=== PATIENT | male | born 1950 | race Caucasian/White ===

== ENCOUNTER → 2019-11-19 | Outpatient (CLI) | payer MEDICARE, OTHER ==
--- NOTE | 2019-11-19 12:12 | CT ---
EXAMINATION TYPE: CT brain wo con DATE OF EXAM: 11/19/2019 COMPARISON: None HISTORY: Headache with dizziness. CT DLP: 1090.4 mGycm Automated exposure control for dose reduction was used. TECHNIQUE: CT scan of the head is performed without contrast. FINDINGS: There is no acute intracranial hemorrhage or midline shift identified. There is diffuse v entricular and sulcal prominence consistent with diffuse age-related cerebral atrophy. The globes ar e intact. There is moderate to severe mucosal thickening of the right maxillary sinus, circumferent ial moderate mucosal thickening of the left maxillary sinus and severe mucosal thickening in the ethm oid sinuses. Inspissated secretions are seen in the sphenoid sinus. Very scant mucosal thickening in the inferior aspect of the frontal sinuses. Mastoid air cells are well aerated. Cerumen is noted in b oth external auditory canals, right greater than left. There is mild leftward nasal septal deviation. IMPRESSION: 1. No acute intracranial hemorrhage or midline shift. 2. Moderate to severe pansinusitis.
== END | disposition home or self-care (01) ==
LOC: RADCTMAIN 10:00
PROVIDERS: ATTEND Family Medicine
DX: S09.90XA Unspecified injury of head, initial encounter (principal); R42 Dizziness and giddiness
CPT/HCPCS: 70450

== ENCOUNTER → 2019-12-04 | Outpatient (CLI) | payer MEDICARE, OTHER ==
--- NOTE | 2019-12-05 08:00 | ECHOF ---
Referral Reason:[id number] dizziness, R94.31 abnormal EKG MEASUREMENTS -------- HEIGHT: 180.3 cm WEIGHT: 102.5 kg BP: RVIDd: 3.1 cm (< 3.3) IVSd: 1.0 cm (0.6 - 1.1) LVIDd: 5.1 cm (3.9 - 5.3) LVPWd: 1.2 cm (0.6 - 1.1) IVSs: 1.5 cm LVIDs: 2.9 cm LVPWs: 1.5 cm LAESV Index (A-L): 26.45 ml/m Ao Diam: 3.3 cm (2.0 - 3.7) AV Cusp: 2.4 cm (1.5 - 2.6) LA Diam: 3.7 cm (2.7 - 3.8) MV EXCURSION: 18.395 mm (> 18.000) MV EF SLOPE: 137 mm/s (70 - 150) EPSS: 0.6 cm MV E Luc: 0.84 m/s MV DecT: 189 ms MV A Luc: 0.72 m/s MV E/A Ratio: 1.17 AR PHT: 749 ms RAP: 5.00 mmHg RVSP: 10.49 mmHg FINDINGS -------- Sinus rhythm. This was a technically good study. The left ventricular size is normal. Left ventricular wall thickness is normal. Overall left vent ricular systolic function is normal with, an EF between 55 - 60 %. The diastolic filling pattern is normal for the age of the patient 10.47. The right ventricle is normal in size. The left atrial size is normal. Normal LA size by volume 22+/-6 ml/m2. The right atrial size is normal. Interatrial and interventricular septum intact. The aortic valve is trileaflet and appears structurally normal. Trace amount of aortic regurgitatio n. The mitral valve is normal. There is trace mitral regurgitation. The tricuspid valve appears structurally normal. Trace tricuspid regurgitation present. Right coby tricular systolic pressure is normal at < 35 mmHg. Trace/mild (physiologic) pulmonic regurgitation. The aortic root size is normal. Normal inferior vena cava with normal inspiratory collapse consistent with estimated right atrial pre ssure of 5 mmHg. There is no pericardial effusion. CONCLUSIONS -------- 1. Sinus rhythm. 2. This was a technically good study. 3. The left ventricular size is normal. 4. Left ventricular wall thickness is normal. 5. Overall left ventricular systolic function is normal with, an EF between 55 - 60 %. 6. The diastolic filling pattern is normal for the age of the patient 10.47 7. The right ventricle is normal in size. 8. The left atrial size is normal. 9. Normal LA size by volume 22+/-6 ml/m2. 10. The right atrial size is normal. 11. Interatrial and interventricular septum intact. 12. The aortic valve is trileaflet and appears structurally normal. 13. Trace amount of aortic regurgitation. 14. The mitral valve is normal. 15. There is trace mitral regurgitation. 16. The tricuspid valve appears structurally normal. 17. Trace tricuspid regurgitation present. 18. Right ventricular systolic pressure is normal at < 35 mmHg. 19. Trace/mild (physiologic) pulmonic regurgitation. 20. The aortic root size is normal. 21. Normal inferior vena cava with normal inspiratory collapse consistent with estimated right atrial pressure of 5 mmHg. 22. There is no pericardial effusion. SIDE DOOR MAN: Jeannette Moreno RDCS
== END | disposition home or self-care (01) ==
LOC: RADECHMAIN 10:29
PROVIDERS: ATTEND Family Medicine
DX: I08.3 Combined rheumatic disorders of mitral, aortic and tricuspid valves (principal); R42 Dizziness and giddiness
CPT/HCPCS: 93306

== ENCOUNTER → 2020-02-28 | Outpatient (CLI) | payer MEDICARE, OTHER ==
--- NOTE | 2020-02-28 08:18 | US ---
EXAMINATION TYPE: US kidneys/renal and bladder DATE OF EXAM: 02/28/2020 COMPARISON: NONE CLINICAL HISTORY: R31.9 HEMATURIA. Hematuria EXAM MEASUREMENTS: Right Kidney: 10.8 x 5.6 x 5.1cm Left Kidney: 11.6 x 6.1 x 5.3cm Right Kidney: cystic area anterior mid = 0.8cm Left Kidney: no evidence of hydronephrosis Bladder: appears wnl Bilateral Jets seen: yes There is no evidence for hydronephrosis at this point in time. No nephrolithiasis is seen. No jie s are identified. Cortical medullary differentiation is maintained. The urinary bladder is anechoic. Bilateral ureteral jets are seen. IMPRESSION: Normal renal sizes, no evident mass. Small probable cortical cyst midpole right kidney.
== END | disposition home or self-care (01) ==
LOC: RADUSWWP 07:41
PROVIDERS: ATTEND Urology
DX: R31.9 Hematuria, unspecified (principal)
CPT/HCPCS: 76770

== ENCOUNTER 2020-03-20 06:20 | Day surgery (SDC) | payer MEDICARE, OTHER ==
[2020-03-20] MEDS ORDERED: Pre Op ABX Message 1 EACH MISC MISCELLANE ONE (09:00)
[2020-03-20] MEDS ORDERED: ONDANSETRON 4 MG/2 ML VIAL ONE (11:39)
[2020-03-20] MEDS ORDERED: DEXAMETHASONE SOD PHOSPHATE 4 MG/ML 1 ML VIAL IVP ONE (11:40)
[2020-03-20] MEDS ORDERED: LACTATED RINGERS 1,000 ML IV ONE (11:40)
[2020-03-20] MEDS ORDERED: ONDANSETRON 4 MG/2 ML VIAL IVP ONE (11:40)
[2020-03-20 11:42] VITALS: TEMP 97.1
[2020-03-20] MEDS ORDERED: SODIUM BICARB 8.4% 10 ML VIAL (1 MEQ/ML) ONE (12:24)
[2020-03-20 13:46] VITALS: RESP 16
[2020-03-20 14:42] VITALS: BP 111/57; PULSE 73
--- NOTE | 2020-03-29 15:41 | P.OP ---
Date of Procedure: 03/20/20 Preoperative Diagnosis: 1. Right small finger puncture wound with retained foreign body. Postoperative Diagnosis: 1. Right small finger puncture wound with retained foreign body. Procedure(s) Performed: 1. Exploration, irrigation and debridement of right small finger wound with removal of foreign body. Anesthesia: local Surgeon: Nj Metzger Estimated Blood Loss (ml): 1 Condition: stable Disposition: same day Indications for Procedure: The patient is a pleasant 69-year-old male who presented to the office for evaluation of a puncture wound to his right small finger. He was ripping up some plywood alexander when the injury occurred and he thought he may have gotten a splinter. He was evaluated at an urgent care but they were unable to identify any foreign body. Ultrasound examination the office revealed a hyperechoic structure with shadowing, consistent with a retained foreign body. Treatment options (and associated risks & benefits) were discussed in the office; the patient elected surgical exploration and removal. In preop, additional questions were addressed and the patient wished to proceed with surgery. Consent forms were signed. The operative site was confirmed and marked. Operative Findings: Removed foreign body: Wood fragment, measuring 1 mm x 2 mm x 18 mm Description of Procedure: After consent was obtained, lidocaine with epinephrine was injected around the planned incision/surgical site in preop, using aseptic technique. After an appropriate interval of time, the patient was brought to the OR and positioned supine with the operative limb on a hand table. The right upper extremity was then prepped and draped in standard, sterile fashion. A time-out was performed, confirming patient identifiers, the operative side, the site and the procedure to be performed: all team members expressed agreement. Loupe magnification was utilized throughout the case for optimum visualization. The puncture wound at the palmar digital crease was incorporated into a partial Mikey incision on the volar aspect of the small finger proximal phalanx. The skin was sharply incised. Spreading dissection proceeded down to the flexor sheath.There was a moderate amount of edema but no gross purulence. The wound was bluntly probed and explored: The foreign body was identified along the ulnar aspect of the flexor sheath, consistent with the patients description of the injury trajectory ([id number] and [id number]). The wood splinter was carefully dissected free and removed atraumatically. There was no obvious injury to the flexor tendons or neurovascular bundle. A small amount of thickened, fibrinous exudative/granular tissue was identified along the flexor sheath between the A1 and A2 pulleys and was carefully removed with a rongeur. The surrounding soft tissues were gently debrided with a cu rette. The wound was visually explored: No further foreign matter was identified. The wound was copiously irrigated with normal saline using a syringe and angiocatheter. Good hemostasis was maintained throughout the case without the need for a tourniquet. The incision was loosely closed with interrupted 5-0 nylon sutures. A soft, sterile dressing was applied. All sponge, needle and instrument counts were correct at the end of the case. No complications were identified. The patient tolerated the procedure well and was transferred to recovery in stable condition.
== END 2020-03-20 14:18 | disposition home or self-care (01) ==
LOC: OR 06:20
PROVIDERS: ATTEND Orthopaedic Surgery
DX: S61.246A Puncture wound with foreign body of right little finger without damage to nail, initial encounter (principal); Z97.3 Presence of spectacles and contact lenses; Z87.11 Personal history of peptic ulcer disease; Z87.891 Personal history of nicotine dependence; W26.9XXA Contact with unspecified sharp object(s), initial encounter
CPT/HCPCS: 20103; J1100; J2405

== ENCOUNTER → 2020-09-03 | Outpatient (CLI) | payer MEDICARE, OTHER ==
[2020-09-03 08:30] LABS: African American GFR (CKD) >90 (>60 ml/min/1.73 sqM); Blood Urea Nitrogen 16 mg/dL (9-20); Non-African American GFR(CKD) 83 (>60 ml/min/1.73 sqM)
--- NOTE | 2020-09-03 10:28 | CT ---
EXAMINATION TYPE: CT urogram wo/w con DATE OF EXAM: 09/03/2020 COMPARISON: Renal ultrasound 02/28/2020 HISTORY: 70-year-old male R31.0, hematuria TECHNIQUE: Contiguous axial scanning of the abdomen and pelvis performed without and with IV Contrast , patient injected with 100 mL of Isovue 300. Delayed images through the kidneys and bladder were obt ained. Coronal/sagittal reconstructions performed. 3-D reconstructions generated on a dedicated [employer] workstation. CT DLP: 3529 mGycm Automated exposure control for dose reduction was used. FINDINGS: Heart normal size without pericardial effusion. There is pleural thickening at the posterior right ba se probably chronic given calcifications on both sides and some prominent bands of scarring or atelec tasis. Three-month follow-up CT chest can reassess for any changes. No focal liver lesion or biliary ductal dilatation. Portal venous system is patent. Gallbladder, adrenal glands, spleen, and pancreas appear within normal limits. Tiny subcentimeter cortical hypodensities within the right kidney, too small for accurate CT characte rization, likely tiny cysts. No suspicious renal mass is identified. No nephrolithiasis. Symmetric uptake and excretion of contrast from the kidneys. No suspicious filling defects within the renal collecting systems or along the course of either urete r. No dilated small bowel, free fluid, or free air. No mesenteric or retroperitoneal lymphadenopathy. Normal appendix. Mild stool burden. Mild diverticular change along the mid sigmoid colon. No pericolo brody inflammatory change. Mild circumferential bladder wall thickening. Pelvic phleboliths. Prostate gland measures 4.3 cm wide . No abnormal fluid collection in the pelvis or pelvic lymphadenopathy. Bones: Mild degenerative change of the hips and facet arthropathy mid to lower lumbar spine. Moderate degenerative disc disease mid and lower lumbar spine. IMPRESSION: 1. Tiny subcentimeter cortical hypodensities within the right kidney, likely tiny cortical cysts. No suspicious renal mass, collecting system lesion, nephrolithiasis, or abnormality along the course of either ureters. 2. Mild circumferential bladder wall thickening could represent chronic bladder wall hypertrophy or c ystitis. 3. Bibasilar pleural calcifications overlying the hemidiaphragms and additional prominent pleural par enchymal thickening at the right base. Query history of prior asbestos exposure. Three-month follow-u p CT chest recommended to reassess.
== END ==
LOC: RADCTMAIN 07:40
PROVIDERS: ATTEND Urology
DX: N28.89 Other specified disorders of kidney and ureter (principal); N32.89 Other specified disorders of bladder; J92.0 Pleural plaque with presence of asbestos
CPT/HCPCS: 82565; 84520; 74178; 36415; 74400; Q9967

== ENCOUNTER → 2021-03-02 | Outpatient (CLI) | payer MEDICARE, OTHER ==
--- NOTE | 2021-03-03 09:13 | CT ---
EXAMINATION TYPE: CT chest wo con DATE OF EXAM: 03/02/2021 COMPARISON: CT urogram 09/03/2020 HISTORY: abn CT urogram CT DLP: 484.9 mGycm. Automated Exposure Control for Dose Reduction was Utilized. TECHNIQUE: CT scan of the thorax is performed without IV contrast. FINDINGS: Lack of contrast could compromise sensitivity. Calcified pleural plaques are present bilaterally. Pleural thickening at the right lung base shows a similar appearance to prior exam, there is associated scarring. Volume loss is present in the right h emithorax. No endobronchial lesion. LUNGS: The lungs are grossly clear, there is no concerning parenchymal mass or nodule identified. T here is no pleural effusion or pneumothorax seen. The tracheobronchial tree is patent. MEDIASTINUM: Lack of IV contrast is noted to limit evaluation for mediastinal and especially hilar ad enopathy. There are no definitive greater than 1 cm hilar or mediastinal lymph nodes. No cardiomega ly or pericardial effusion is seen. There are coronary artery calcifications. Prominence of the pulmo nary artery could be indicative of pulmonary artery hypertension. OTHER: No additional significant abnormality is seen. IMPRESSION: Correlate for specimens related disease. Coronary artery disease and possible pulmonary a rtery hypertension. Stable pleural thickening at the lung bases. Noncontrast exam.
== END | disposition home or self-care (01) ==
LOC: RADCTMAIN 14:22
PROVIDERS: ATTEND Family Medicine
DX: J92.9 Pleural plaque without asbestos (principal); I25.10 Atherosclerotic heart disease of native coronary artery without angina pectoris
CPT/HCPCS: 71250

== ENCOUNTER → 2023-04-12 | Outpatient (CLI) | payer MEDICARE, OTHER ==
--- NOTE | 2023-04-12 11:16 | CA ---
Exercise Nuclear Stress Test Report Name: Sherman Lamb Exam Date: 04/12/2023 10:30 Exam Location: [facility] Stress Ht (in): 71 Wt (lb): 223 BSA: 2.21 Ordering Phys: Christianne Alves MD Referring Phys: Christianne Alves MD Technologist: ESTRELLITA,, Age: 73 Gender: M : 1950 Procedure CPT: Indications: I25.10 ATHSCL HEART DISEASE OF [place] CORONARY ART ICD-10 Codes: Patient History: Chest pain Medications: Meds past 24 hrs: Pretest Chest Pain: STRESS TEST Star Protocol Exercise Duration (min:sec): 06:[address] Depressions (mm): Angina Score: Erazo Score: Resting HR (bpm): 72 Peak HR (bpm): 130 Resting BP (mmHg): 139 / 78 Peak BP (mmHg): 187 / 83 MPHR: 145 Target HR: 123 % MPHR: 90 METS: 7.1 Total Dose: Peak Dose: Atropine: Double Product: 09180 BP Response: Stress Termination: Reached target heart rate Stress Symptoms: No chest pain or symptoms Stress Summary: ECG ANALYSIS Resting ECG: Normal sinus rhythm, normal ECG, heart rate 71 beats minute Stress ECG: No significant ST-T wave changes that are diagnostic for ischemia by ST segment analysis. There are occasional monomorphic PVCs during peak exercise and in recovery. CONCLUSIONS Fair excess tolerance for patient's age Nonischemic ECG response to exercise Normal hemodynamic and clinical response to exercise Overall normal treadmill stress test Please refer to the nuclear portion of this stress test for complete interpretation of this study Dr Pramod Rodríguez (Electronically Signed) Final Date: 12 April 2023 11:15
--- NOTE | 2023-04-12 11:59 | NM ---
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 The patient exercised using a CAMILO protocol and 1 minute prior to peak e xercise was injected with 25.5 mCi Tc 99m Sestamibi - Stress images obtained 30 minutes post injectio n. FINDINGS: Targeted heart rate was achieved during performance of the study. Review of stress and rest SPECT marine ges demonstrates decreased perfusion involving the stress images involving the inferoseptal wall as w ell as the apical inferior wall. Stress-induced ischemia is not excluded. Gated analysis shows normal wall motion with an estimated left ventricular ejection fraction of 51 %. IMPRESSION: Decreased perfusion involving the stress images involving the inferoseptal wall as well as the apical inferior wall. Stress-induced ischemia is not excluded.
== END | disposition home or self-care (01) ==
LOC: RADNMMAIN 08:24
PROVIDERS: ATTEND Internal Medicine
DX: I25.10 Atherosclerotic heart disease of native coronary artery without angina pectoris (principal)
CPT/HCPCS: 93017; 78452; A9500

== ENCOUNTER → 2023-04-27 | Outpatient (CLI) | payer MEDICARE, OTHER ==
[2023-04-27 16:50] LABS: HCT 45.7 % (39.6-50.0); MCH 30.1 pg (27.0-32.0); MCHC 32.8 g/dL (32.0-37.0); MCV 91.6 FL (80.0-97.0); Mean Platelet Volume 11.8 FL (9.5-12.2); NRBC Per 100 WBC 0 X 10*3/uL (0.00-0.01); Platelet Count 188 X 10*3/uL (140-440); RBC 4.99 X 10*6/uL (4.40-5.60); RDW 13.1 % (11.5-14.5); WBC 5.54 X 10*3/uL (4.50-10.00)
[2023-04-27 21:11] LABS: Blood Urea Nitrogen 13.7 mg/dL (9.0-27.0); Carbon Dioxide 24.7 mmol/L (21.6-31.8); Chloride 106 mmol/L (96-109); Potassium 5.4 mmol/L (3.5-5.5); Sodium 145 mmol/L (135-145)
== END | disposition home or self-care (01) ==
LOC: LABPAT 11:05
PROVIDERS: ATTEND Internal Medicine Interventional Cardiology
DX: Z01.812 Encounter for preprocedural laboratory examination (principal)
CPT/HCPCS: 80051; 82565; 84520; 85027

== ENCOUNTER 2023-05-08 06:10 | Day surgery (SDC) | payer MEDICARE, OTHER ==
[~2023-05-08 06:10] MED LIST: ALPRAZolam 0.25 MG TAB PO PRN; ALPRAZolam 0.5 MG TAB PO PRN; HEPARIN SODIUM,PORCINE (1 ML) 2,500 UNIT in SODIUM CHLORIDE 0.9% 250 ML IRRIGATION PRN; HEPARIN SODIUM,PORCINE 10,000 UNIT in SODIUM CHLORIDE 0.9% 1,000 ML IRRIGATION PRN; NITROGLYCERIN SL TABS 0.4 MG TAB SUBLINGUAL PRN; SODIUM CHLORIDE 0.9% 1,000 ML in EMPTY BAG 1 BAG IV SCH
[2023-05-08] MEDS ORDERED: SODIUM CHLORIDE 0.9% 1,000 ML IV ONE (06:36)
[2023-05-08 06:57] VITALS: RESP 16; TEMP 97.4
[2023-05-08] MEDS ORDERED: LIDOCAINE 1% INJ 10MG/ML (20 ML MDV) ONE (07:17)
[2023-05-08] MEDS ORDERED: VERAPAMIL 2.5 MG/ML 2 ML AMP ONE (07:17)
[2023-05-08] MEDS ORDERED: HEPARIN SODIUM 1,000 UN/ML (10ML VL) ONE (07:43)
[2023-05-08] MEDS ORDERED: MIDAZOLAM 2 MG/2 ML VIAL IVP ONE (07:53)
[2023-05-08] MEDS ORDERED: LIDOCAINE 1% INJ 10MG/ML (20 ML MDV) SQ ONE (07:54)
[2023-05-08] MEDS ORDERED: VERAPAMIL SYRINGE (5 MG/10 ML) INTRAARTER ONE (07:56)
[2023-05-08] MEDS ORDERED: HEPARIN SODIUM 1,000 UN/ML (10ML VL) IV ONE (07:58)
[2023-05-08] MEDS ORDERED: IOPAMIDOL-370 100ML BTL INJ ONE (08:08)
[2023-05-08] MEDS ORDERED: RX INFO: IV CONTRAST WAS GIVEN 1 EACH MISC MISCELLANE PRN (08:18)
--- NOTE | 2023-05-08 08:22 | P.PCN ---
Date of Procedure: 05/08/23 Operative Findings: CARDIAC CATHETERIZATION PERFORMING PHYSICIAN: Venancio Hutson MD, RPVI PROCEDURE PERFORMED: 1. Selective right and left coronary angiogram 2. Left heart catheterization 3. Ultrasound-guided access of the right radial artery INDICATION: This is a 73-year-old gentleman who was experiencing symptoms of chest discomfort and underwent myocardial perfusion imaging stress test showed anterior ischemia. In the light of that heart catheterization was advised COMPLICATION: None APPROACH: Right radial artery LEVEL OF SEDATION: Moderate with a sedation length of 17 minutes PROCEDURE DESCRIPTION: After obtaining an informed consent, the patient was brought to cardiac clinical laboratory scientist. Local anesthesia was performed using lidocaine subcutaneously. The right radial artery was cannulated using Seldinger technique, the guidewire passed easily, following that we advanced a 5-Palestinian sheath dilator assembly, the wire and dilator were removed and sheath was flushed. Following that, 2 mg of verapamil along with 2000 unit heparin were given. Selective right and left coronary angiogram using a 6-Palestinian JR4 and JL 3.5 catheters. Following that we did left heart catheterization using 6-Palestinian pigtail catheter. The procedure was completed there was no complication. SELECTIVE CORONARY ANGIOGRAM: The right coronary artery: Large-caliber vessel and a dominant vessel and appeared to be angiographically normal. Distally bifurcates into PDA and PLV branches and both appeared to be angiographically normal Left main: Is angiographically normal. Bifurcates into an LCx and LAD The left circumflex: Large caliber vessel and nondominant vessel. Its angiographically normal. It gives rises into the first and second and third obtuse marginal branch and APPEARS to be angiographically normal The left anterior descending artery: Large caliber vessel. Its angiographically normal. Gives rises into a large diagonal branch which seems to be angiographically normal HEMODYNAMICS: The LVEDP was 10-12 mmHg was no significant gradient across aortic valve CONCLUSION: 1. Normal coronary angiogram 2. Normal left-sided filling pressure POSTPROCEDURE MANAGEMENT: Medical treatment
[2023-05-08] MEDS ORDERED: SODIUM CHLORIDE 0.9% 1,000 ML IV SCH (08:30)
[2023-05-08 14:53] VITALS: BP 126/72; PULSE 62
== END 2023-05-08 11:55 | disposition home or self-care (01) ==
LOC: CATHCVL 06:10
PROVIDERS: ATTEND Internal Medicine Interventional Cardiology
DX: I25.10 Atherosclerotic heart disease of native coronary artery without angina pectoris (principal); I10 Essential (primary) hypertension; E78.5 Hyperlipidemia, unspecified; F17.210 Nicotine dependence, cigarettes, uncomplicated; Z79.899 Other long term (current) drug therapy
CPT/HCPCS: 93458; C1769; C1894; J2250; J2001; J1644; Q9967

== ENCOUNTER → 2023-10-10 | Outpatient (CLI) | payer MEDICARE, OTHER ==
--- NOTE | 2023-10-10 18:30 | US ---
EXAMINATION TYPE: US carotid duplex BILAT DATE OF EXAM: 10/10/2023 COMPARISON: NONE CLINICAL INDICATION: Male, 73 years old with history of I65.23 CAROTID STENOSIS; On HTN meds due to c ardiac issues. No hx tia or stroke TECHNIQUE: Carotid duplex ultrasound examination. Indirect Doppler criteria was utilized. FINDINGS: EXAM MEASUREMENTS: RIGHT: Peak Systolic Velocity (PSV) cm/sec ----- Right CCA: 79.8 ----- Right ICA: 73.8 ----- Right ECA: 117.3 ICA/CCA ratio: 0.9 RIGHT: End Diastole cm/sec ----- Right CCA: 15.9 ----- Right ICA: 18.8 ----- Right ECA: 15.5 LEFT: Peak Systolic Velocity (PSV) cm/sec ----- Left CCA: 120.5 ----- Left ICA: 101.7 ----- Left ECA: 81.2 ICA/CCA ratio: 0.8 LEFT: End Diastole cm/sec ----- Left CCA: 25.2 ----- Left ICA: 29.2 ----- Left ECA: 6.5 VERTEBRALS (direction of flow): Right Vertebral: Antegrade Left Vertebral: Antegrade Rhythm: Normal BUSINESS SYSTEMS ANALYST NOTES: No elevated velocities or significant stenosis. There is mild scattered plaque in the left common carotid artery and left carotid bifurcation. There is no significant plaque formation in the right common carotid artery or right common carotid bifurca tion. IMPRESSION: 1. Mild scattered plaque in the left common coronary artery and left carotid bifurcation. Based on co fausto and grayscale imaging as well as peak systolic velocities ratios, there is minimal left internal carotid artery stenosis. 2. No stenosis or plaque formation involving the right common carotid artery or internal carotid brandon ry. 3. No hemodynamically significant stenosis bilaterally. Criteria for Assigning % of Stenosis / Diameter reduction (Estimation based on the indirect measurements of the internal carotid artery velocities (ICA PSV). 1. Normal (no stenosis)=ICA PSV < 125 cm/s: ratio < 2.0: ICA EDV<40 cm/s. 2. Less than 50% stenosis=ICA PSV < 125 cm/s: ratio < 2.0: ICA EDV<40 cm/s. 3. 50 to 69% stenosis=ICA PSV of 125 to 230 cm/s: ration 2.0 ? 4.0: ICA EDV 40-100 cm/s. 4. Greater than 70% stenosis to near occlusion= ICA PSV > 230 cm/s: ratio > 4.0: ICA EDV > 100 cm/s. 5. Near occlusion= ICA PSV velocities may be low or undetectable: variable ratio and ICA EDV. 6. Total occlusion=unable to detect flow.
== END | disposition home or self-care (01) ==
LOC: RADUSWWP 07:57
PROVIDERS: ATTEND Internal Medicine
DX: I65.22 Occlusion and stenosis of left carotid artery (principal); I25.10 Atherosclerotic heart disease of native coronary artery without angina pectoris
CPT/HCPCS: 93880